=== PATIENT | female | born 1960 | race Caucasian/White ===

== ENCOUNTER 2021-05-11 08:12 | Emergency (ER) | payer OTHER ==
[~2021-05-11 08:12] MED LIST: CLARITIN10 MG PO; NORCO 5-325 TA1 EACH PO; PREDNISONE 20MG20 MG PO; ZOFRAN8 MG PO
[2021-05-11 08:33] LABS: BASOPHIL 0.5 % (0-2); EOSINOPHIL 0.6 % (0-5); HCT 46.4 % (37.0-47.0); HGB 15.3 g/dl (12.5-16.0); MCH 32.1 pg (25.0-31.0); MCV 97.3 fL (78.0-100.0); MONOCYTE 8.1 % (0-12); MPV 10.2 fL (6.0-9.5); NEUTROPHIL 71.5 % (41-80); NRBC 0; PLT 251 K/uL (150-400); RBC 4.77 M/uL (4.20-5.40); RDW 12.3 % (11.5-14.0); WBC 12.3 K/uL (4.0-10.5)
[2021-05-11 09:08] LABS: BILIRUBIN - TOTAL 0.5 mg/dL (0.2-1.0); BUN/CREAT RATIO (CALC) 16.4 RATIO; CREATININE 0.73 mg/dL (0.51-0.95); GLOBULIN (CALCULATION) 4.1 g/dL; POTASSIUM 3.6 mmol/L (3.5-5.1); TOTAL PROTEIN 8.1 g/dL (6.4-8.2)
[2021-05-11 09:45] LABS: CORONAVIRUS 2019 SARS-COV-2 NEGATIVE (NEGATIVE); INFLUENZA A NAA NEGATIVE (NEGATIVE)
[2021-05-11] MEDS ORDERED: VIBRAMYCIN100 MG PO (11:42)
[2021-05-11] MEDS ORDERED: MEDROL 4MG DOSEP4 MG PO (11:42)
== END 2021-05-11 12:10 | disposition home or self-care (01) ==
LOC: FER 08:12
PROVIDERS: Emergency Medicine
DX: J44.1 Chronic obstructive pulmonary disease with (acute) exacerbation (principal); K76.9 Liver disease, unspecified; I10 Essential (primary) hypertension; F17.200 Nicotine dependence, unspecified, uncomplicated; Z88.1 Allergy status to other antibiotic agents; Z20.822 Contact with and (suspected) exposure to COVID-19
CPT/HCPCS: 36415; 71045; 71275; 80053; 84484; 85025; 85379; 93005; J2930; Q9967; U0002